=== PATIENT | female | born 1965 | race Caucasian/White ===

== ENCOUNTER → 2016-11-04 | Outpatient (CLI) | payer MEDICARE, OTHER ==
[~2016-11-04] MED LIST: ACCOLATE20 MG PO; ALBUTEROL17 G1 IH; AMBIEN PO; AMITRYPTYLINE PO; AMOXICILLIN PO; ASPIRIN PO; ASPIRINBUFF PO; ATENOLOL PO; BACTRIM DS TABL1 TA1 PO; BACTRIM DS TABL1 TAB PO; BUSPAR PO; BUSPAR5 MG PO; DARVOCET-N 1001 TAB PO; DESYREL150 M1 PO; DIFLUCAN PO; DOXYCYCLINE PO; FLEXERIL PO; GLUCOPHAGE XR500 MG PO; JENTADUETO 2.51 EAC2 PO; KETOPROFEN PO; KLONOPIN PO; LAMICTAL PO; LAMICTAL100 MG PO; LAMOTRIGINE25 M1 PO; LANTUS SOLOSTAR3 ML SUBQ; LIPITOR; LISINOPRIL PO; METFORMIN PO; PATIENT'S PHARMACY; PREDNISONE PO; PYRIDIUM PO; TIZANIDINE HCL4 M1 PO; TRAZODONE PO; VICODIN 5/500 T1 TAB PO; VOLTAREN75 MG PO; WALMART PHARMACY; ZITHROMAX1 G/PKT PO; [UNRECOGNIZED DRUG - OTHER]; [UNRECOGNIZED DRUG - REMARK]
[2016-11-04 10:24] LABS: BASOPHIL# 0.1 X10e3 (0-0.3); BASOPHIL% 0.8 % (0-2.5); EOSINOPHIL# 0.2 X10e3 (0-0.7); EOSINOPHIL% 1.5 % (0.0-7.0); HEMATOCRIT 47.4 % (35.0-45.0); HEMOGLOBIN 15.3 gm/dL (12.0-16.0); LYMPHOCYTE# 4.7 X10e3 (1.0-3.5); LYMPHOCYTE% 39.6 % (17.0-45.0); MEAN CELL VOLUME 90.9 FL (83-96); MEAN CORPUSCULAR HEMOGLOBIN 29.3 PG (28-34); MEAN CORPUSCULAR HGB CONC 32.2 g/dL (30-36); MEAN PLATELET VOLUME 7.6 FL (6.5-11.5); MONOCYTE% 8.1 % (3.0-12.0); NEUTROPHIL# 5.9 X10e3 (1.5-7.1); PLATELET COUNT 315 X10e3 (140-420); RED BLOOD COUNT 5.21 X10e (3.90-5.30); WHITE BLOOD COUNT 11.9 X10e3 (4.0-10.5)
[2016-11-04 10:25] LABS: DIFF IND NO
[2016-11-04 11:44] LABS: ALBUMIN SERUM 3.9 g/dL (3.5-5.0); ALKALINE PHOSPHATASE 100 U/L (32-92); ALT (SGPT) 28 U/L (10-40); AST (SGOT) 25 U/L (10-42); BILIRUBIN,TOTAL 0.9 mg/dL (0.2-2.0); BLOOD UREA NITROGEN 11 mg/dL (9-23); BUN/CREATININE RATIO 13.75; CALCIUM SERUM 9.3 mg/dL (8.4-10.2); CARBON DIOXIDE 28 mmol/L (22-31); CHLORIDE 101 mmol/L (100-111); CHOLESTEROL 194 mg/dL (0-200); CREATININE SERUM 0.8 mg/dL (0.6-1.4); GLOM FILT RATE Estimated ABOVE60 mL/min (>60); GLUCOSE FASTING 77 mg/dL (70-110); HDL CHOLESTEROL 56 mg/dL (35-95); LDL CHOLESTEROL 116 mg/dL (-130); LDL/HDL RATIO 2 RATIO (0-4); POTASSIUM 4.6 mmol/L (3.5-5.1); SODIUM 138 mmol/L (135-145); TRIGLYCERIDES 108 mg/dL (10-160)
[2016-11-04 13:33] LABS: FOLATE (FOLIC ACID) 18.9 ng/mL (>5.8)
== END | disposition home or self-care (01) ==
LOC: CLAB 09:47
PROVIDERS: Nurse Practitioner
DX: E11.65 Type 2 diabetes mellitus with hyperglycemia (principal); E78.2 Mixed hyperlipidemia; F41.1 Generalized anxiety disorder
CPT/HCPCS: 36415; 80053; 80061; 82607; 82746; 83036; 84443; 85025